=== PATIENT | female | born 1995 | race Caucasian/White ===

== ENCOUNTER 2018-07-08 04:05 | Inpatient (IN) | payer SELFPAY ==
[~2018-07-08] VITALS: Ht 157.5 cm; Wt 82.4 kg
[2018-07-08 05:14] LABS: BASO # 0.1 (0.0-0.2); BASO % 0.4 % (0.0-2.0); EOS # 0.6 (0.0-0.7); EOS % 5.3 % (0-4.0); GRAN # 6.3 (1.4-6.5); GRAN % 56.6 % (42.2-75.2); HEMATOCRIT 41.2 % (37.0-47.0); HEMOGLOBIN 13.4 g/dl (12.5-16.0); LYMPH # 3.3 (1.2-3.4); LYMPH % 29.3 % (20.0-51.0); MEAN CELL VOLUME 90 fl (80.0-100.0); MEAN CORPUSCULAR HEMOGLOBIN 29 pg (27.0-31.0); MEAN CORPUSCULAR HGB CONC 33 g/dl (33.0-37.0); MEAN PLATELET VOLUME 9.2 fl (7.4-10.4); MONO # 0.9 (0.1-0.6); PLATELET COUNT 336 K/mm3 (130-400); RED BLOOD COUNT 4.56 M/mm3 (4.10-5.30); REDCELL DISTRIBUTION WIDTH-CV 13.3 % (11.5-14.5)
[2018-07-08 05:24] LABS: ALANINE AMINOTRANSFERASE 17 U/L (9-52); ALBUMIN 3.9 gm/dL (3.5-5.0); ALKALINE PHOSPHATASE 50 U/L (50-136); ANION GAP 5 mmol/L (7-16); AST,SGOT 12 U/L (15-37); BILIRUBIN,TOTAL < 0.1 mg/dL (0.0-1.0); BLOOD UREA NITROGEN 12 mg/dL (7-17); CALCIUM 9.4 mg/dL (8.4-10.2); CARBON DIOXIDE 27 mmol/L (22-30); CHLORIDE 108 mmol/L (98-107); CREATININE, serum 0.75 mg/dL (0.52-1.25); GLUCOSE 95 mg/dL (74-106); SODIUM 140 mmol/L (137-145); TOTAL PROTEIN 6.7 gm/dL (6.4-8.2)
[2018-07-08 05:25] LABS: ACETAMINOPHEN < 10 ug/mL (10-30); ALCOHOL(ethanol),MEDICAL < 10 mg/dL; SALICYLATE < 1.0 mg/dL
[2018-07-08 08:24] VITALS: BP 106/58; PULSE 67; TEMP 98.2
[2018-07-08 11:11] VITALS: BP 96/48; PULSE 76; TEMP 98.6
[2018-07-08] MEDS ORDERED: KEPPRA 500MG500 MG PO (17:21)
== END 2018-07-08 19:06 | disposition home or self-care (01) | DRG 101 ==
LOC: COL.ER 04:05 → MEDICAL 06:13
PROVIDERS: Emergency Medicine
DX: R56.9 Unspecified convulsions (principal); F17.210 Nicotine dependence, cigarettes, uncomplicated; F41.8 Other specified anxiety disorders; F31.9 Bipolar disorder, unspecified
CPT/HCPCS: 99222-AI; 99239; A9585; J1953

== ENCOUNTER 2018-08-31 20:56 | Emergency (ER) | payer SELFPAY ==
[~2018-08-31] VITALS: Ht 157.5 cm; Wt 97.7 kg
[~2018-08-31 20:56] MED LIST: KEPPRA 500MG500 MG PO
[2018-08-31 21:05] VITALS: TEMP 98
[2018-08-31 21:30] LABS: BASO # 0.1 (0.0-0.2); BASO % 0.6 % (0.0-2.0); EOS # 0.5 (0.0-0.7); EOS % 5.4 % (0-4.0); GRAN # 5.7 (1.4-6.5); GRAN % 57.1 % (42.2-75.2); HEMATOCRIT 41.1 % (37.0-47.0); HEMOGLOBIN 13.5 g/dl (12.5-16.0); LYMPH # 2.9 (1.2-3.4); LYMPH % 28.7 % (20.0-51.0); MEAN CELL VOLUME 90 fl (80.0-100.0); MEAN CORPUSCULAR HEMOGLOBIN 30 pg (27.0-31.0); MEAN CORPUSCULAR HGB CONC 33 g/dl (33.0-37.0); MEAN PLATELET VOLUME 9.1 fl (7.4-10.4); MONO # 0.8 (0.1-0.6); MONO % 7.9 % (1.7-9.3); PLATELET COUNT 349 K/mm3 (130-400); RED BLOOD COUNT 4.55 M/mm3 (4.10-5.30); REDCELL DISTRIBUTION WIDTH-CV 12.6 % (11.5-14.5)
[2018-08-31 21:41] LABS: ALANINE AMINOTRANSFERASE 18 U/L (9-52); ALBUMIN 4.5 gm/dL (3.5-5.0); ALKALINE PHOSPHATASE 54 U/L (50-136); ANION GAP 12 mmol/L (7-16); AST,SGOT 22 U/L (15-37); BILIRUBIN,TOTAL 0.3 mg/dL (0.0-1.0); BLOOD UREA NITROGEN 11 mg/dL (7-17); CALCIUM 9.9 mg/dL (8.4-10.2); CARBON DIOXIDE 24 mmol/L (22-30); CHLORIDE 103 mmol/L (98-107); CREATININE, serum 0.77 mg/dL (0.52-1.25); GLUCOSE 85 mg/dL (74-106); POTASSIUM 4.1 mmol/L (3.4-5.0); SODIUM 139 mmol/L (137-145); TOTAL PROTEIN 7.8 gm/dL (6.4-8.2)
[2018-08-31 21:42] LABS: ALCOHOL(ethanol),MEDICAL < 10 mg/dL
[2018-08-31 21:57] LABS: PROLACTIN 12.8 ng/mL (3.0-18.6)
[2018-08-31 22:09] LABS: COLLECTION METHOD CLEAN CATCH
[2018-08-31 22:16] LABS: MUCOUS Present /lpf; PH 6 (5-8); URINE APPEARANCE Cloudy; URINE BACTERIA Rare /hpf; URINE BILIRUBIN Negative (NEGATIVE); URINE BLOOD Negative (NEGATIVE); URINE COLOR Yellow; URINE GLUCOSE Negative (NEGATIVE); URINE KETONE Negative (NEGATIVE); URINE LEUKOCYTE ESTERASE Trace (NEGATIVE); URINE NITRATE Negative (NEGATIVE); URINE PROTEIN(semi-quant) Negative (NEGATIVE); URINE UROBILINOGEN Negative (NEGATIVE)
[2018-08-31] MEDS ORDERED: LAMICTAL 100MG100 MG PO (23:25)
[2018-08-31 23:39] VITALS: BP 103/55; PULSE 74
== END 2018-08-31 23:46 | disposition home or self-care (01) ==
LOC: COL.ER 20:56
PROVIDERS: Emergency Medicine
DX: G40.909 Epilepsy, unspecified, not intractable, without status epilepticus (principal); S60.221A Contusion of right hand, initial encounter; M54.5 Low back pain; F17.210 Nicotine dependence, cigarettes, uncomplicated; W00.0XXA Fall on same level due to ice and snow, initial encounter
CPT/HCPCS: J1953

== ENCOUNTER 2018-09-15 00:51 | Emergency (ER) | payer SELFPAY ==
[~2018-09-15] VITALS: Ht 157.5 cm; Wt 97.7 kg
[~2018-09-15 00:51] MED LIST changes: +LAMICTAL 100MG100 MG PO
[2018-09-15 00:53] VITALS: TEMP 97.4
[2018-09-15 01:08] LABS: BASO # 0.1 (0.0-0.2); BASO % 0.5 % (0.0-2.0); EOS # 0.6 (0.0-0.7); EOS % 4.9 % (0-4.0); GRAN # 6.7 (1.4-6.5); GRAN % 55.7 % (42.2-75.2); HEMATOCRIT 39.7 % (37.0-47.0); HEMOGLOBIN 13.4 g/dl (12.5-16.0); LYMPH # 3.7 (1.2-3.4); LYMPH % 30.9 % (20.0-51.0); MEAN CELL VOLUME 88 fl (80.0-100.0); MEAN CORPUSCULAR HEMOGLOBIN 30 pg (27.0-31.0); MEAN CORPUSCULAR HGB CONC 34 g/dl (33.0-37.0); MEAN PLATELET VOLUME 9.1 fl (7.4-10.4); MONO # 0.9 (0.1-0.6); MONO % 7.6 % (1.7-9.3); PLATELET COUNT 333 K/mm3 (130-400); RED BLOOD COUNT 4.52 M/mm3 (4.10-5.30); REDCELL DISTRIBUTION WIDTH-CV 12.4 % (11.5-14.5)
[2018-09-15 01:33] LABS: ALBUMIN 4.3 gm/dL (3.5-5.0); BILIRUBIN,TOTAL 0.3 mg/dL (0.0-1.0); CALCIUM 9.9 mg/dL (8.4-10.2); CREATININE, serum 0.66 mg/dL (0.52-1.25); POTASSIUM 4.2 mmol/L (3.4-5.0); TOTAL PROTEIN 7.2 gm/dL (6.4-8.2)
[2018-09-15 01:49] LABS: PROLACTIN 18.5 ng/mL (3.0-18.6)
[2018-09-15 02:50] LABS: COLLECTION METHOD CLEAN CATCH
[2018-09-15 03:02] LABS: MUCOUS Present /lpf; PH 6 (5-8); URINE APPEARANCE Cloudy; URINE BACTERIA Rare /hpf; URINE BILIRUBIN Negative (NEGATIVE); URINE BLOOD 3+ (NEGATIVE); URINE COLOR Red; URINE GLUCOSE Negative (NEGATIVE); URINE KETONE Negative (NEGATIVE); URINE LEUKOCYTE ESTERASE Negative (NEGATIVE); URINE NITRATE Positive (NEGATIVE); URINE PROTEIN(semi-quant) 2+ (NEGATIVE); URINE RBC >50 /hpf; URINE UROBILINOGEN Negative (NEGATIVE)
[2018-09-15] MEDS ORDERED: MACROBID 1100 MG/CAP PO (03:23)
[2018-09-15] MEDS ORDERED: DEPAKOTE500 MG PO (03:23)
[2018-09-15 04:49] VITALS: BP 109/70; PULSE 80
== END 2018-09-15 04:49 | disposition home or self-care (01) ==
LOC: COL.ER 00:51
PROVIDERS: Emergency Medicine
DX: G40.909 Epilepsy, unspecified, not intractable, without status epilepticus (principal); N39.0 Urinary tract infection, site not specified; F17.210 Nicotine dependence, cigarettes, uncomplicated
CPT/HCPCS: J7030

== ENCOUNTER 2020-07-17 23:37 | Emergency (ER) | payer SELFPAY ==
[~2020-07-17] VITALS: Ht 157.5 cm; Wt 113.6 kg
[~2020-07-17 23:37] MED LIST changes: +DEPAKOTE500 MG PO; +MACROBID 1100 MG/CAP PO
[2020-07-17] MEDS ORDERED: BUSPAR5 MG PO (23:48)
[2020-07-17] MEDS ORDERED: ZOLOFT 50MG50 MG PO (23:48)
[2020-07-18 00:26] LABS: BASO % 0.5 % (0.0-2.0); EOS # 0.3 (0.0-0.7); EOS % 3.8 % (0-4.0); GRAN % 51.1 % (42.2-75.2); HEMATOCRIT 40.6 % (37.0-47.0); HEMOGLOBIN 13.6 g/dl (12.5-16.0); LYMPH # 2.7 (1.2-3.4); LYMPH % 34.2 % (20.0-51.0); MEAN CELL VOLUME 87 fl (80.0-100.0); MEAN CORPUSCULAR HEMOGLOBIN 29 pg (27.0-31.0); MEAN CORPUSCULAR HGB CONC 34 g/dl (33.0-37.0); MONO # 0.8 (0.1-0.6); MONO % 10.1 % (1.7-9.3); PLATELET COUNT 380 K/mm3 (130-400); RED BLOOD COUNT 4.69 M/mm3 (4.10-5.30)
[2020-07-18 00:29] LABS: ALCOHOL(ethanol),MEDICAL < 10 mg/dL
[2020-07-18 00:30] LABS: ALANINE AMINOTRANSFERASE 40 U/L (4-34); ALBUMIN 4.6 gm/dL (3.5-5.0); AST,SGOT 25 U/L (15-37); BILIRUBIN,TOTAL 0.3 mg/dL (0.0-1.0); BLOOD UREA NITROGEN 11 mg/dL (7-17); CALCIUM 9.7 mg/dL (8.4-10.2); CARBON DIOXIDE 23 mmol/L (22-30); CHLORIDE 107 mmol/L (98-107); CREATININE, serum 0.8 (0.52-1.25); GLUCOSE 93 mg/dL (74-106); POTASSIUM 3.9 mmol/L (3.4-5.0); SODIUM 140 mmol/L (137-145); TOTAL PROTEIN 7.8 gm/dL (6.4-8.2)
[2020-07-18 00:31] LABS: ACETAMINOPHEN < 10 ug/mL (10-30); ALKALINE PHOSPHATASE 65 U/L (50-136); SALICYLATE < 1.0 mg/dL
[2020-07-18 00:32] LABS: ANION GAP 10 mmol/L (7-16)
[2020-07-18 00:34] LABS: COLLECTION METHOD CLEAN CATCH
[2020-07-18 01:03] LABS: TRICYCLIC ANTIDEPRESS URINE NEGATIVE
[2020-07-18 01:09] LABS: URINE COLOR Amber
[2020-07-18 01:10] LABS: PH 6 (5-8); URINE APPEARANCE Turbid; URINE BILIRUBIN Negative (NEGATIVE); URINE GLUCOSE Negative (NEGATIVE); URINE KETONE Negative (NEGATIVE); URINE PROTEIN(semi-quant) 1+ (NEGATIVE)
[2020-07-18 01:11] LABS: URINE BLOOD Negative (NEGATIVE); URINE LEUKOCYTE ESTERASE Trace (NEGATIVE); URINE NITRATE Positive (NEGATIVE)
[2020-07-18 01:12] LABS: MUCOUS Present /lpf; URINE BACTERIA Many /hpf; URINE RBC 0-2 /hpf; URINE WBC 20-50 /hpf
[2020-07-18 01:25] VITALS: TEMP 98.1
[2020-07-18] MEDS ORDERED: CEPHALEXIN500 M1 PO (03:30)
[2020-07-18 03:50] VITALS: BP 114/75; PULSE 92
== END 2020-07-18 03:50 | disposition home or self-care (01) ==
LOC: COL.ER 23:37
PROVIDERS: Emergency Medicine
DX: R45.851 Suicidal ideations (principal); N39.0 Urinary tract infection, site not specified; F32.9 Major depressive disorder, single episode, unspecified; F41.9 Anxiety disorder, unspecified; F17.200 Nicotine dependence, unspecified, uncomplicated; Z20.828 Contact with and (suspected) exposure to other viral communicable diseases; Z32.02 Encounter for pregnancy test, result negative

== ENCOUNTER 2020-10-11 19:19 | Emergency (ER) | payer SELFPAY ==
[~2020-10-11] VITALS: Ht 157.5 cm; Wt 100.0 kg
[~2020-10-11 19:19] MED LIST changes: +BUSPAR5 MG PO; +CEPHALEXIN500 M1 PO; +ZOLOFT 50MG50 MG PO
[2020-10-11 20:39] VITALS: TEMP 98
[2020-10-11 23:43] VITALS: BP 114/66; PULSE 96
== END 2020-10-11 23:43 | disposition home or self-care (01) ==
LOC: COL.ER 19:19
DX: J30.9 Allergic rhinitis, unspecified (principal); F41.0 Panic disorder [episodic paroxysmal anxiety]; F32.9 Major depressive disorder, single episode, unspecified; F17.210 Nicotine dependence, cigarettes, uncomplicated; Z20.822 Contact with and (suspected) exposure to COVID-19

== ENCOUNTER 2021-06-29 15:21 | Emergency (ER) | payer SELFPAY ==
[~2021-06-29] VITALS: Ht 157.5 cm; Wt 113.6 kg
[2021-06-29 16:16] VITALS: BP 128/64; PULSE 70; TEMP 98.6
== END 2021-06-29 16:21 | disposition home or self-care (01) ==
LOC: COL.ER 15:21
DX: K01.1 Impacted teeth (principal); J30.9 Allergic rhinitis, unspecified

== ENCOUNTER 2022-04-02 02:09 | Emergency (ER) | payer SELFPAY ==
[~2022-04-02] VITALS: Ht 157.5 cm; Wt 113.6 kg
[2022-04-02 02:12] VITALS: TEMP 97.6
[2022-04-02 02:25] LABS: BASO % 0.4 % (0.0-2.0); EOS # 0.1 K/mm3 (0.0-0.7); EOS % 0.9 % (0.0-4.0); GRAN # 4.1 K/mm3 (1.4-6.5); GRAN % 52.4 % (42.2-75.2); HEMATOCRIT 39.2 % (37.0-47.0); HEMOGLOBIN 13.5 g/dl (12.5-16.0); LYMPH % 38.9 % (20.0-51.0); MEAN CELL VOLUME 85 fl (80.0-100.0); MEAN CORPUSCULAR HEMOGLOBIN 29 pg (27-31); MEAN CORPUSCULAR HGB CONC 34 g/dl (33.0-37.0); MEAN PLATELET VOLUME 8.9 fl (7.4-10.4); MONO # 0.6 K/mm3 (0.1-0.6); MONO % 7.3 % (1.7-9.3); PLATELET COUNT 363 K/mm3 (130-400); RED BLOOD COUNT 4.64 M/mm3 (4.10-5.30); REDCELL DISTRIBUTION WIDTH-CV 12.3 % (11.5-14.5)
[2022-04-02 02:46] LABS: ACETAMINOPHEN < 1.0 ug/mL (10-30); ALANINE AMINOTRANSFERASE 32 U/L (0-55); ALBUMIN 4.1 gm/dL (3.5-5.0); ALCOHOL(ethanol),MEDICAL 68 mg/dL (0-10); ALKALINE PHOSPHATASE 70 U/L (40-150); ANION GAP 13 mmol/L (7-16); AST,SGOT 17 U/L (5-34); BILIRUBIN,TOTAL 0.2 mg/dL (0.2-1.2); BLOOD UREA NITROGEN 8 mg/dL (7-19); CALCIUM 9.8 mg/dL (8.4-10.2); CARBON DIOXIDE 17 mmol/L (22-29); CHLORIDE 108 mmol/L (98-107); CREATININE, serum 0.78 mg/dL (0.57-1.11); GLUCOSE 87 mg/dL (70-99); POTASSIUM 3.2 mmol/L (3.5-4.5); SALICYLATE < 5.0 mg/dL (15.0-30.0); SODIUM 138 mmol/L (136-145); TOTAL PROTEIN 7.7 gm/dL (6.2-8.1)
[2022-04-02 03:18] LABS: COLLECTION METHOD CLEAN CATCH
[2022-04-02 03:25] LABS: URINE BACTERIA Rare /hpf (NONE SEEN); URINE COLOR Yellow (YELLOW); URINE RBC 0-2 /hpf (0-2)
[2022-04-02 03:26] LABS: PH 6.5 (5.0-8.5); URINE APPEARANCE Clear (CLEAR/HAZY); URINE BLOOD Negative (NEGATIVE); URINE GLUCOSE Negative (NEGATIVE); URINE KETONE Negative (NEGATIVE); URINE NITRATE Negative (NEGATIVE); URINE PROTEIN(semi-quant) Negative (NEGATIVE); URINE UROBILINOGEN 0.2 E.U/dL (0.2-1.0)
[2022-04-02] MEDS ORDERED: LIDODERM 5% PATC1 EA TP (04:48)
[2022-04-02] MEDS ORDERED: KEPPRA 500MG500 MG PO (04:48)
[2022-04-02] MEDS ORDERED: TORADOL 10MG TA10 MG PO (04:48)
[2022-04-02 04:59] VITALS: BP 145/78; PULSE 76
== END 2022-04-02 04:59 | disposition home or self-care (01) ==
LOC: COL.ER 02:09
PROVIDERS: Emergency Medicine
DX: S16.1XXA Strain of muscle, fascia and tendon at neck level, initial encounter (principal); G40.909 Epilepsy, unspecified, not intractable, without status epilepticus; F10.129 Alcohol abuse with intoxication, unspecified; F17.210 Nicotine dependence, cigarettes, uncomplicated; Y90.3 Blood alcohol level of 60-79 mg/100 ml; W18.09XA Striking against other object with subsequent fall, initial encounter
CPT/HCPCS: J1885; J2270; J7030